=== PATIENT | female | born 1975 | race Caucasian/White ===

== ENCOUNTER 2018-06-09 13:33 | Emergency (ER) | payer MEDICAID ==
[~2018-06-09] VITALS: Ht 167.6 cm; Wt 70.3 kg
[2018-06-09 13:45] VITALS: BP_SYST 147
--- NOTE | 2018-06-09 13:50 | NUR ---
Patient to ER bed 7 to gown for evaluation. Side rails up. Report given to Dominique ANGELES.
--- NOTE | 2018-06-09 14:11 | NUR ---
ER at bedside examining patient.
--- NOTE | 2018-06-09 14:11 | NUR ---
patient is AOx4. 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 She currently doesn't have any pain, however states "I feel it coming on." patient hasn't seen her PCP for hypertention and it comes and goes. She is a smoker and drinks ETOH socially. denies any other drug use or medical hx. patient has no other complaints or injuries.
[2018-06-09] MEDS ORDERED: METOPROLOL TARTRATE 5 MG/5 ML VIAL IVP ONE (14:15)
[2018-06-09 15:25] VITALS: BP_SYST 147
--- NOTE | 2018-06-09 15:25 | NUR ---
Patient given written and verbal discharge instructions and verbalizes understanding. ER MD discussed with patient the results and treatment provided. Patient in stable condition. ID arm band removed. No Rx given at this time. Patient educated on pain management and to follow up with PMD. Pain Scale 0/10. Opportunity for questions provided and answered. Medication side effect fact sheet provided.
[2018-06-09 15:27] LABS: BARBITURATE, URINE NEGATIVE (NEG <=200); BENZODIAZEPINE, URINE NEGATIVE (NEG <=150); CANNABINOID, URINE NEGATIVE (NEG <=50); COCAINE, URINE NEGATIVE (NEG <=150); METHAMPHETAMINES SCREEN,URINE POSITIVE (NEG <=500); OPIATE, URINE NEGATIVE (NEG <=100); PHENCYCLIDINE SCREEN,URINE NEGATIVE (NEG <=25); UR TRICYCLIC ANTIDEPRESSANTS NEGATIVE (NEG <=300); URINE AMPHETAMINE POSITIVE (NEG <=500); URINE METHADONE NEGATIVE (NEG <=200); URINE OXYCODONE SCREEN NEGATIVE (NEG <=100); URINE PROPOXYPHENE SCREEN NEGATIVE (NEG <=300)
== END 2018-06-09 15:25 | disposition home or self-care (01) ==
LOC: SED 13:33
DX: F15.10 Other stimulant abuse, uncomplicated (principal); I10 Essential (primary) hypertension
CPT/HCPCS: 70450-TC; 80307; 81025; 99284